=== PATIENT | male | born 1960 | race Hispanic/Latino ===

== ENCOUNTER 2020-04-12 20:29 | Emergency (ER) | payer SELFPAY ==
[~2020-04-12] VITALS: Ht 167.6 cm; Wt 77.1 kg
[2020-04-12] MEDS ORDERED: SODIUM CHLORIDE 0.9% 1000ML 1,000 ML IV STA (20:42)
[2020-04-12] MEDS ORDERED: ACETAMINOPHEN 325 MG TAB PO ONE ×2 (20:45→21:15)
[2020-04-12] MEDS ORDERED: CEFTRIAXONE SOD 1 GM/NS 50 ML 50 ML IV ONE ×2 (20:55→21:15)
[2020-04-12] MEDS ORDERED: SODIUM CHLORIDE 0.9% 1000ML 1,000 ML ONE (20:55)
[2020-04-12] MEDS ORDERED: CEFTRIAXONE SOD 1 GM VIAL IV ONE (21:00)
--- NOTE | 2020-04-12 21:19 | Diagnostic Imaging Report ---
EXAMINATION: CXR 1 VEW - HOPD INDICATION: Fever and cough. COMPARISON: None FINDINGS: TUBES and LINES: None. LUNGS: There are multifocal patchy airspace opacities worse in the left lung. PLEURA: No pleural effusion or pneumothorax. HEART AND MEDIASTINUM: The cardiomediastinal silhouette is unremarkable. BONES AND SOFT TISSUES: No acute osseous lesion. Soft tissues are unremarkable. UPPER ABDOMEN: No free air under the diaphragm. IMPRESSION: Multifocal patchy air space opacities worse in the left lung which likely represents multifocal pneumonia. Signed by: Lizbeth Justice MD on 04/12/2020 9:16 PM
[2020-04-12] MEDS ORDERED: DEXAMETHASONE SOD PHOS 10 MG/1 ML VIAL IV ONE (21:30)
--- NOTE | 2020-04-12 21:49 | Emergency Department Note ---
History of Present Illnes History of Present Illness Chief Complaint: COVID PUI History of Present Illness This is a 59 year old male Chief Complaint Comment PT HERE FOR COVID PUI, STATES HE HAS BEEN SICK FOR OVE A WEEK NOW, WITH HIGH FEVERS, DRY COUGH, BODY ACHES, WENT TO A CLINIC YESTERDAY AND THEY PROCK FINGER FOR SOME BLOOD TO DO A COVID ANTIBODY TEST AND IT WAS NEGATIVE, PT SATS 93% ON RA, TACHYCARIC AND FEBRILE DURING TRIAGE . 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 Onset (how long ago): day(s) (3) Location: chest Quality: dull Radiation: Denies non-radiation, Denies back, Denies neck, Denies extremity, Denies abdomen, Denies periumbilical, Denies flank, Denies proximal, Denies distal, Denies other Severity: mild Onset quality: gradual Duration (how long): day(s) (2) Timing of current episode: constant Progression: waxing and waning Chronicity: new Context: Denies recent illness, Denies recent surgery, Denies recent imm obilization, Denies recent travel, Denies trauma/injury, Denies new medications, Denies hx of DVT/PE, Denies non-compliance w/ medications, Denies other Relieving factors: none Exacerbating factors: none Associated symptoms: Reports cough, Reports fever/chills; Denies denies other symptoms, Denies confusion, Denies chest pain, Denies diaphoresis, Denies headaches, Denies loss of appetite, Denies malaise, Denies nausea/vomiting, Denies rash, Denies seizure, Denies shortness of breath, Denies syncope, Denies weakness, Denies other Treatments prior to arrival: none Past Medical/Family History Physician Review I have reviewed the patient's past medical and family history. Any updates have been documented here. Past Medical History Recent Fever: Yes Clinical Suspicion of Infectio: Yes New/Unexplained Change in Ment: No Past Medical History: None Past Surgical History: None Social History Smoking Cessation: Never Smoker Alcohol Use: Occasional Review of Systems Review of Systems Constitutional: Reports as per HPI, Reports fever EENTM: Reports no symptoms Cardiovascular: Reports no symptoms Respiratory: Reports as per HPI, Reports cough Gastrointestinal: Reports no symptoms Genitourinary: Reports no symptoms Musculoskeletal: Reports no symptoms Integumentary: Reports no symptoms Neurological: Reports no symptoms Psychological: Reports no symptoms Endocrine: Reports no symptoms Hematological/Lymphatic: Reports no symptoms Physical Exam Related Data Allergies: Coded Allergies: No Known Allergies (Unverified , 04/12/20) Triage Vital Signs Vital Signs Date Time Temp Pulse Resp B/P (MAP) Pulse Ox O2 Delivery O2 Flow Rate FiO2 04/12/20 20:37 103.2 115 22 157/90 93 Room Air Physical Exam CONSTITUTIONAL Constitutional: Present well-developed, Present well-nourished HENT HENT: Present normocephalic, Present atraumatic, Present oropharynx clear/moist, Present nose normal HENT L/R: Present left ext ear normal, Present right ext ear normal EYES Eyes: Reports PERRL, Reports conjunctivae normal NECK Neck: Present ROM normal PULMONARY Pulmonary: Present effort normal, Present breath sounds normal, Present rhonchi CARDIOVASCULAR Cardiovascular: Present regular rhythm, Present heart sounds normal, Present capillary refill normal, Present normal rate GASTROINTESTINAL Abdominal: Present soft, Present nontender, Present bowel sounds normal GENITOURINARY Genitourinary: Present exam deferred SKIN Skin: Present warm, Present dry MUSCULOSKELETAL Musculoskeletal: Present ROM normal NEUROLOGICAL Neurological: Present alert, Present oriented x 3, Present no gross motor or sensory deficits PSYCHOLOGICAL Psychological: Present mood/affect normal, Present judgement normal Results Laboratory Lab results reviewed: Yes Imaging Imaging results reviewed: Yes Assessment & Plan Medical Decision Making MDM covid pneumonia bronchitis Reassessment Reassessment time: 21:48 Reassessment better..O2 SAT 95% ON RA Assessment & Plan Final Impression: (1) Pneumonia due to COVID-19 virus (2) Fever (3) Tachycardia Depart Disposition: HOME, SELF-CARE Last Vital Signs Date Time Temp Pulse Resp B/P (MAP) Pulse Ox O2 Delivery O2 Flow Rate FiO2 04/12/20 20:37 103.2 115 22 157/90 93 Room Air Medications in the ED Acetaminophen 1,000 mg ONCE ONCE PO Last administered on 04/12/20at 20:50; Admin Dose 1,000 MG; Start 04/12/20 at 20:45; Stop 04/12/20 at 21:11; Status DC Sodium Chloride 1,000 ml @ 0 mls/hr Q0M STAT IV Last administered on 04/12/20at 20:50; Admin Dose 999 MLS/HR; Start 04/12/20 at 20:42; Stop 04/12/20 at 20:45; Status DC Ceftriaxone Sodium 50 ml @ ud STK-MED ONCE IV ; Start 04/12/20 at 20:55; Stop 04/12/20 at 20:49; Status DC Sodium Chloride 1,000 ml @ ud STK-MED ONCE .ROUTE ; Start 04/12/20 at 20:55; Stop 04/12/20 at 20:49; Status DC Ceftriaxone Sodium 1 gm ONCE ONCE IV Last administered on 04/12/20at 20:50; Admin Dose 1 GM; Start 04/12/20 at 21:00; Stop 04/12/20 at 21:12; Status DC Acetaminophen 975 mg ONCE ONCE PO ; Start 04/12/20 at 21:15; Stop 04/12/20 at 21:16; Status DC Ceftriaxone Sodium 50 ml @ 100 mls/hr ONCE ONCE IV ; Start 04/12/20 at 21:15; Stop 04/12/20 at 21:44; Status DC Dexamethasone Sodium Phosphate 6 mg ONCE ONCE IV ; Start 04/12/20 at 21:30; Stop 04/12/20 at 21:32; Status DC HARJIT ZAVALA MD Apr 12, 2020 21:49
[2020-04-12] MEDS ORDERED: AZITHROMYCIN250 MG PO (21:51)
[2020-04-12] MEDS ORDERED: PROVENTIL HFA6.7 GM INH (21:51)
== END 2020-04-12 22:05 | disposition home or self-care (01) ==
LOC: FSED 20:42
DX: U07.1 COVID-19 (principal); J18.9 Pneumonia, unspecified organism; R50.9 Fever, unspecified; R05 Cough; R00.0 Tachycardia, unspecified
CPT/HCPCS: 71045; 80053; 81003; 85025; 99283; J0696; J1100; J7030